=== PATIENT | male | born 1965 | race Caucasian/White ===

== ENCOUNTER 2019-10-15 12:32 | Observation (INO) ==
[2019-10-15] MEDS ORDERED: *HR* Metoprolol 5 MG/5 ML VIAL IVP ONE ×2 (13:14→14:06)
[2019-10-15 13:33] LABS: Prothrombin Time 23.2 Seconds (9.4-12.1)
[2019-10-15 13:36] LABS: Basophils # 0.1 K/mcL (0.0-0.2); Basophils % 0.9 %; Eosinophils # 0.2 K/mcL (0.0-0.6); Hematocrit 43.9 % (37.5-50.1); Immature Granulocytes % 0.4 % (0-4); Lymphocytes # 2.9 K/mcL (0.6-4.6); Lymphocytes % 29.4 %; Mean Corpuscular HGB Conc 34.2 g/dL (31.6-35.5); Mean Corpuscular Hemoglobin 33.4 pg (28.0-33.3); Mean Corpuscular Volume 97.8 fL (83.0-100.0); Mean Platelet Volume 10.4 fL (9.4-12.4); Monocytes % 10.5 %; Neutrophils # 5.5 K/mcL (1.6-8.9); Platelet Count 229 K/mcL (140-400); Red Blood Count 4.49 M/mcL (4.19-5.50); Segmented Neutrophils % 56.8 %; White Blood Count 9.7 K/mcL (4.3-11.1)
[2019-10-15 13:57] LABS: Troponin I 0.04 ng/mL (< 0.04)
[2019-10-15 14:06] LABS: BUN/Creatinine Ratio 15 (6-26); Blood Urea Nitrogen 13 mg/dL (6-20); Calcium 9.2 mg/dL (8.6-10.3); Carbon Dioxide 28 mEq/L (23-29); Chloride 100 mEq/L (98-107); Glucose 104 mg/dL (70-105); Magnesium 1.8 mg/dL (1.6-2.6); Osmolality,Calculated 290 (280-300); Sodium 140 mEq/L (136-145); Thyroid Stimulating Hormone 0.706 mcIU/mL (0.340-5.600); eGFR For African Americans > 60 (> 60); eGFR For Non-African Americans > 60 (> 60)
[2019-10-15] MEDS ORDERED: Aspirin 325 MG TABLET PO ONE (14:17)
[2019-10-15] MEDS ORDERED: Naloxone 0.4 MG/ML INJ IVP PRN (16:38)
[2019-10-15] MEDS ORDERED: *HR* Metoprolol 5 MG/5 ML VIAL IVP PRN (16:42)
[2019-10-15] MEDS ORDERED: Nitroglycerin 0.4 MG TAB.SUBL SL PRN (16:42)
[2019-10-15] MEDS ORDERED: Perflutren Lipid Microsphere 1.3 ML in 0.9 % Sodium Chloride 8.7 ML IVP ONE (18:05)
[2019-10-16] MEDS ORDERED: Metoprolol XL (24 HR) Succ 50 MG TAB.ER.24H PO SCH ×2 (09:00)
[2019-10-16] MEDS ORDERED: *HR* Digoxin 0.125 MG TABLET PO SCH (09:00)
[2019-10-16] MEDS ORDERED: Furosemide 20 MG TABLET PO SCH (09:00)
[2019-10-16] MEDS ORDERED: Aspirin Enteric Coated 81 MG Tablet PO SCH (09:00)
[2019-10-16] MEDS ORDERED: Tiotropium 18 MCG inhalation IH SCH (10:00)
[2019-10-16 12:00] VITALS: BP 135/96
[2019-10-16] MEDS ORDERED: *HR* Rivaroxaban 10 MG TABLET PO SCH (17:00)
== END 2019-10-16 12:59 | disposition home or self-care (01) ==
LOC: 2NENU 12:32 → EMEROOARM 12:32 → SUATTDRO 14:24 → 2NENU 15:10
PROVIDERS: ADMIT Internal Medicine; ATTEND Internal Medicine